=== PATIENT | female | born 1985 | race Caucasian/White ===

== ENCOUNTER 2017-08-12 13:58 | Emergency (ER) | payer OTHER ==
[2017-08-12 14:25] LABS: ADD MAN DIFF? NO
[2017-08-12 14:27] LABS: WHITE BLOOD COUNT 9.5 10^3/ul (4.8-10.8)
[2017-08-12 14:27] LABS: BASOPHILS % 0.4 % (0.0-2.0); EOSINOPHILS # 0.2 10^3/ul (0.0-0.5); EOSINOPHILS % 2.2 % (0.0-7.0); HEMATOCRIT 33.7 % (37.0-47.0); HEMOGLOBIN 10.9 g/dl (12.0-16.0); LYMPHOCYTES # 1.5 10^3/ul (0.8-2.9); LYMPHOCYTES % 15.2 % (15.0-51.0); MEAN CORPUSCULAR HEMOGLOBIN 27.5 pg (29.0-33.0); MEAN CORPUSCULAR HGB CONC 32.3 g/dl (32.0-37.0); MEAN CORPUSCULAR VOLUME 85.1 fl (82.0-101.0); MEAN PLATELET VOLUME 10.3 fl (7.4-10.4); MONOCYTE # 0.5 10^3/ul (0.3-0.9); MONOCYTES % 4.9 % (0.0-11.0); NEUTROPHIL # 7.3 10^3/ul (1.6-7.5); PLATELET COUNT 327 10^3/UL (140-415); RED BLOOD COUNT 3.96 10^6/ul (4.20-5.40); RED CELL DISTRIBUTION WIDTH 16.4 % (11.5-14.5)
[2017-08-12 14:49] LABS: ADD UMIC YES; UR ASCORBIC ACID NEGATIVE (NEGATIVE); UR BACTERIA FEW /HPF (NONE SEEN); UR BILIRUBIN (Dip) NEGATIVE (NEGATIVE); UR BLOOD (Dip) NEGATIVE (NEGATIVE); UR CLARITY CLOUDY (CLEAR); UR COLOR YELLOW (YELLOW); UR GLUCOSE (Dip) NEGATIVE (NEGATIVE); UR KETONES (Dip) NEGATIVE (NEGATIVE); UR LEUKOCYTE ESTERASE (Dip) 3+ Leu/ul (NEGATIVE); UR MUCUS MODERATE /HPF (NONE SEEN); UR NITRITE (Dip) NEGATIVE (NEGATIVE); UR RBC 8 /HPF (0-5); UR SPECIFIC GRAVITY (Dip) 1.026 (1.003-1.030); UR SQUAMOUS EPITHELIAL CELL MANY /HPF (FEW); UR TOTAL PROTEIN (Dip) NEGATIVE (NEGATIVE); UR UROBILINOGEN (Dip) 1+ mg/dL (NEGATIVE); UR WBC 22 /HPF (0-5)
[2017-08-12 14:56] LABS: ALANINE AMINOTRANSFERASE 31 IU/L (13-69); ALBUMIN 3.8 g/dl (3.3-4.9); ALBUMIN/GLOBULIN RATIO 1.22; ALKALINE PHOSPHATASE 89 IU/L (42-121); ANION GAP 16 (8-16); ASPARTATE AMINO TRANSFERASE 32 IU/L (15-46); BILIRUBIN,INDIRECT 0.2 mg/dl (0-1.1); BILIRUBIN,TOTAL 0.2 mg/dl (0.2-1.3); BLOOD UREA NITROGEN 15 mg/dl (7-20); CARBON DIOXIDE 24 mmol/L (21-31); CHLORIDE 109 mmol/L (97-110); CREATININE 0.71 mg/dl (0.44-1.00); GLUCOSE 121 mg/dl (70-220); POTASSIUM 3.1 mmol/L (3.5-5.1); SODIUM 146 mmol/L (135-144); TOTAL PROTEIN 6.9 g/dl (6.1-8.1)
[2017-08-12 15:20] LABS: ACETAMINOPHEN < 10.0 ug/ml (10.0-30.0); ETHANOL < 10.0 mg/dl; SALICYLATE < 1.0 mg/dl (5.0-30.0)
[2017-08-12 15:33] LABS: BARBITURATES Negative (NEGATIVE); BENZODIAZEPINES Negative (NEGATIVE); CANNABINOIDS Negative (NEGATIVE); COCAINE Negative (NEGATIVE); OPIATES Negative (NEGATIVE)
[2017-08-12 15:34] LABS: AMPHETAMINE/METHAMPHETAMINE Positive (NEGATIVE)
[2017-08-12] MEDS: POTASSIUM CHLORIDE (SR) 20 MEQ TAB PO (15:53)
[2017-08-12] MEDS: TRIMETHOPRIM/SULFAMETHOX (DS) TAB PO (15:53)
== END 2017-08-12 17:50 | disposition home or self-care (01) ==
LOC: E/R 13:58
DX: F15.10 Other stimulant abuse, uncomplicated (principal); N39.0 Urinary tract infection, site not specified; E87.6 Hypokalemia; D64.9 Anemia, unspecified; Z87.891 Personal history of nicotine dependence
CPT/HCPCS: 36415; 80053; 80306; 80307; 81001; 81025; 84703; 85025; 99283-25

== ENCOUNTER 2017-08-19 12:20 | Emergency (ER) | payer OTHER ==
[2017-08-19 14:34] LABS: ADD MAN DIFF? NO
[2017-08-19 14:36] LABS: BASOPHIL # 0.1 10^3/ul (0.0-0.1); BASOPHILS % 0.6 % (0.0-2.0); EOSINOPHILS # 0.1 10^3/ul (0.0-0.5); EOSINOPHILS % 0.7 % (0.0-7.0); HEMATOCRIT 38.3 % (37.0-47.0); HEMOGLOBIN 12.1 g/dl (12.0-16.0); LYMPHOCYTES # 1.1 10^3/ul (0.8-2.9); LYMPHOCYTES % 12.5 % (15.0-51.0); MEAN CORPUSCULAR HEMOGLOBIN 26.9 pg (29.0-33.0); MEAN CORPUSCULAR HGB CONC 31.6 g/dl (32.0-37.0); MEAN CORPUSCULAR VOLUME 85.1 fl (82.0-101.0); MONOCYTE # 0.5 10^3/ul (0.3-0.9); MONOCYTES % 5.9 % (0.0-11.0); NEUTROPHIL # 7.1 10^3/ul (1.6-7.5); PLATELET COUNT 310 10^3/UL (140-415); RED CELL DISTRIBUTION WIDTH 16.2 % (11.5-14.5)
[2017-08-19 14:36] LABS: WHITE BLOOD COUNT 8.9 10^3/ul (4.8-10.8)
[2017-08-19 14:47] LABS: ADD UMIC YES; UR ASCORBIC ACID NEGATIVE (NEGATIVE); UR BACTERIA FEW /HPF (NONE SEEN); UR BILIRUBIN (Dip) NEGATIVE (NEGATIVE); UR BLOOD (Dip) NEGATIVE (NEGATIVE); UR CLARITY CLOUDY (CLEAR); UR COLOR YELLOW (YELLOW); UR GLUCOSE (Dip) NEGATIVE (NEGATIVE); UR KETONES (Dip) NEGATIVE (NEGATIVE); UR LEUKOCYTE ESTERASE (Dip) 3+ Leu/ul (NEGATIVE); UR MUCUS FEW /HPF (NONE SEEN); UR NITRITE (Dip) NEGATIVE (NEGATIVE); UR NONSQUAMOUS EPITHELIAL CELL 1 /HPF (NONE SEEN); UR RBC 4 /HPF (0-5); UR SPECIFIC GRAVITY (Dip) 1.026 (1.003-1.030); UR SQUAMOUS EPITHELIAL CELL MANY /HPF (FEW); UR TOTAL PROTEIN (Dip) NEGATIVE (NEGATIVE); UR UROBILINOGEN (Dip) NEGATIVE (NEGATIVE); UR WBC 16 /HPF (0-5)
[2017-08-19 14:57] LABS: ALANINE AMINOTRANSFERASE 23 IU/L (13-69); ALBUMIN 3.7 g/dl (3.3-4.9); ALBUMIN/GLOBULIN RATIO 1.19; ALKALINE PHOSPHATASE 71 IU/L (42-121); ANION GAP 15 (8-16); ASPARTATE AMINO TRANSFERASE 18 IU/L (15-46); BILIRUBIN,INDIRECT 0.2 mg/dl (0-1.1); BILIRUBIN,TOTAL 0.2 mg/dl (0.2-1.3); BLOOD UREA NITROGEN 21 mg/dl (7-20); CALCIUM 8.6 mg/dl (8.4-10.2); CARBON DIOXIDE 26 mmol/L (21-31); CHLORIDE 102 mmol/L (97-110); CREATININE 0.72 mg/dl (0.44-1.00); GLUCOSE 169 mg/dl (70-220); SODIUM 139 mmol/L (135-144); TOTAL PROTEIN 6.8 g/dl (6.1-8.1)
[2017-08-19 15:12] LABS: ACETAMINOPHEN < 10.0 ug/ml (10.0-30.0); ETHANOL < 10.0 mg/dl; SALICYLATE < 1.0 mg/dl (5.0-30.0)
[2017-08-19 15:15] LABS: BENZODIAZEPINES Negative (NEGATIVE)
[2017-08-19 15:22] LABS: AMPHETAMINE/METHAMPHETAMINE Positive (NEGATIVE); BARBITURATES Negative (NEGATIVE); CANNABINOIDS Negative (NEGATIVE); COCAINE Negative (NEGATIVE); OPIATES Negative (NEGATIVE)
[2017-08-19] MEDS: NITROFURANTOIN (SR) 100 MG CAP PO (16:43)
== END 2017-08-19 17:15 | disposition home or self-care (01) ==
LOC: E/R 12:20
DX: F32.9 Major depressive disorder, single episode, unspecified (principal); N30.90 Cystitis, unspecified without hematuria
CPT/HCPCS: 36415; 80053; 80306; 80307; 81001; 85025; 99285-25

== ENCOUNTER 2017-09-09 20:41 | Emergency (ER) | payer OTHER ==
[2017-09-09 22:43] LABS: ADD MAN DIFF? NO
[2017-09-09 22:45] LABS: WHITE BLOOD COUNT 10.2 10^3/ul (4.8-10.8)
[2017-09-09 22:45] LABS: ABNORMAL IP MESSAGE 1; BASOPHIL # 0.1 10^3/ul (0.0-0.1); BASOPHILS % 0.8 % (0.0-2.0); EOSINOPHILS % 0.2 % (0.0-7.0); HEMATOCRIT 36.9 % (37.0-47.0); HEMOGLOBIN 11.7 g/dl (12.0-16.0); LYMPHOCYTES # 1.5 10^3/ul (0.8-2.9); MEAN CORPUSCULAR HEMOGLOBIN 26.8 pg (29.0-33.0); MEAN CORPUSCULAR HGB CONC 31.7 g/dl (32.0-37.0); MEAN CORPUSCULAR VOLUME 84.6 fl (82.0-101.0); MEAN PLATELET VOLUME 9.9 fl (7.4-10.4); MONOCYTE # 0.9 10^3/ul (0.3-0.9); MONOCYTES % 8.3 % (0.0-11.0); NEUTROPHIL # 7.1 10^3/ul (1.6-7.5); NEUTROPHILS % 69.4 % (39.0-77.0); PLATELET COUNT 460 10^3/UL (140-415); RED BLOOD COUNT 4.36 10^6/ul (4.20-5.40); RED CELL DISTRIBUTION WIDTH 16.4 % (11.5-14.5)
[2017-09-09 22:48] LABS: POSITIVE DIFF @See below
[2017-09-09 23:25] LABS: BARBITURATES Negative (NEGATIVE); BENZODIAZEPINES Negative (NEGATIVE); CANNABINOIDS Negative (NEGATIVE); COCAINE Negative (NEGATIVE); OPIATES Negative (NEGATIVE)
[2017-09-09 23:39] LABS: AMPHETAMINE/METHAMPHETAMINE POSITIVE (NEGATIVE)
[2017-09-09 23:40] LABS: ALANINE AMINOTRANSFERASE 31 IU/L (13-69); ALBUMIN 3.9 g/dl (3.3-4.9); ALBUMIN/GLOBULIN RATIO 1.08; ALKALINE PHOSPHATASE 107 IU/L (42-121); ANION GAP 15 (8-16); ASPARTATE AMINO TRANSFERASE 24 IU/L (15-46); BLOOD UREA NITROGEN 19 mg/dl (7-20); CALCIUM 9.4 mg/dl (8.4-10.2); CARBON DIOXIDE 32 mmol/L (21-31); CHLORIDE 102 mmol/L (97-110); CREATININE 0.81 mg/dl (0.44-1.00); GLUCOSE 123 mg/dl (70-220); SODIUM 145 mmol/L (135-144); TOTAL PROTEIN 7.5 g/dl (6.1-8.1)
[2017-09-10 00:31] LABS: ACETAMINOPHEN < 10.0 ug/ml (10.0-30.0)
[2017-09-10 00:32] LABS: ETHANOL < 10.0 mg/dl; SALICYLATE < 1.0 mg/dl (5.0-30.0)
[2017-09-10] MEDS: OLANZAPINE 5 MG TAB PO (10:35)
== END 2017-09-10 16:35 ==
LOC: E/R 20:41
DX: R45.851 Suicidal ideations (principal)
CPT/HCPCS: 36415; 80053; 80307; 81025; 85025; 99285-25

== ENCOUNTER 2017-09-30 15:22 | Emergency (ER) | payer OTHER | END 2017-09-30 17:38 | disposition left against medical advice (07) | LOC: E/R 17:38 | DX: F32.9 Major depressive disorder, single episode, unspecified (principal); F15.14 Other stimulant abuse with stimulant-induced mood disorder | CPT/HCPCS: 99282; Z7502 ==

== ENCOUNTER 2017-10-23 14:49 | Emergency (ER) | payer OTHER ==
[2017-10-23 15:50] LABS: ADD MAN DIFF? NO
[2017-10-23 15:53] LABS: BASOPHIL # 0.1 10^3/ul (0.0-0.1); BASOPHILS % 0.5 % (0.0-2.0); EOSINOPHILS % 0.2 % (0.0-7.0); HEMATOCRIT 46.1 % (37.0-47.0); HEMOGLOBIN 14.1 g/dl (12.0-16.0); LYMPHOCYTES # 1.4 10^3/ul (0.8-2.9); LYMPHOCYTES % 11.1 % (15.0-51.0); MEAN CORPUSCULAR HEMOGLOBIN 26.1 pg (29.0-33.0); MEAN CORPUSCULAR HGB CONC 30.6 g/dl (32.0-37.0); MEAN CORPUSCULAR VOLUME 85.4 fl (82.0-101.0); MEAN PLATELET VOLUME 10.3 fl (7.4-10.4); MONOCYTE # 0.5 10^3/ul (0.3-0.9); MONOCYTES % 4.3 % (0.0-11.0); NEUTROPHIL # 10.5 10^3/ul (1.6-7.5); NEUTROPHILS % 83.3 % (39.0-77.0); PLATELET COUNT 426 10^3/UL (140-415)
[2017-10-23 15:53] LABS: WHITE BLOOD COUNT 12.6 10^3/ul (4.8-10.8)
[2017-10-23 16:04] LABS: ADD UMIC YES; UR ASCORBIC ACID NEGATIVE (NEGATIVE); UR BILIRUBIN (Dip) NEGATIVE (NEGATIVE); UR BLOOD (Dip) NEGATIVE (NEGATIVE); UR CLARITY CLOUDY (CLEAR); UR COLOR YELLOW (YELLOW); UR GLUCOSE (Dip) NEGATIVE (NEGATIVE); UR KETONES (Dip) NEGATIVE (NEGATIVE); UR LEUKOCYTE ESTERASE (Dip) 3+ Leu/ul (NEGATIVE); UR MUCUS MODERATE /HPF (NONE SEEN); UR NITRITE (Dip) NEGATIVE (NEGATIVE); UR RBC 8 /HPF (0-5); UR SPECIFIC GRAVITY (Dip) 1.027 (1.003-1.030); UR SQUAMOUS EPITHELIAL CELL MODERATE /HPF (FEW); UR TOTAL PROTEIN (Dip) NEGATIVE (NEGATIVE); UR UROBILINOGEN (Dip) NEGATIVE (NEGATIVE); UR WBC 13 /HPF (0-5)
[2017-10-23 16:12] LABS: INR 0.95; PROTIME 12.8 Sec (11.9-14.9)
[2017-10-23 16:13] LABS: BARBITURATES Negative (NEGATIVE); BENZODIAZEPINES Negative (NEGATIVE); CANNABINOIDS Negative (NEGATIVE); COCAINE Negative (NEGATIVE); OPIATES Negative (NEGATIVE); PARTIAL THROMBOPLASTIN TIME 25.4 Sec (25.0-35.0)
[2017-10-23 16:17] LABS: ALANINE AMINOTRANSFERASE 25 IU/L (13-69); ALBUMIN 4.4 g/dl (3.3-4.9); ALBUMIN/GLOBULIN RATIO 1.12; ALKALINE PHOSPHATASE 94 IU/L (42-121); ANION GAP 18 (8-16); ASPARTATE AMINO TRANSFERASE 23 IU/L (15-46); BILIRUBIN,INDIRECT 0.2 mg/dl (0-1.1); BILIRUBIN,TOTAL 0.2 mg/dl (0.2-1.3); BLOOD UREA NITROGEN 27 mg/dl (7-20); CALCIUM 9.7 mg/dl (8.4-10.2); CARBON DIOXIDE 27 mmol/L (21-31); CHLORIDE 106 mmol/L (97-110); CREATININE 0.77 mg/dl (0.44-1.00); GLUCOSE 122 mg/dl (70-220); SODIUM 146 mmol/L (135-144); TOTAL PROTEIN 8.3 g/dl (6.1-8.1)
[2017-10-23 16:20] LABS: ACETAMINOPHEN < 10.0 ug/ml (10.0-30.0); ETHANOL < 10.0 mg/dl; SALICYLATE < 1.0 mg/dl (5.0-30.0)
[2017-10-23 16:24] LABS: AMPHETAMINE/METHAMPHETAMINE POSITIVE (NEGATIVE)
[2017-10-23] MEDS: CIPROFLOXACIN 500 MG TAB PO (18:21)
[2017-10-23] MEDS: OLANZAPINE 5 MG TAB PO (22:15)
== END 2017-10-24 08:15 ==
LOC: E/R 10-24 08:15
DX: T14.91XA Suicide attempt, initial encounter (principal); F15.10 Other stimulant abuse, uncomplicated; N30.00 Acute cystitis without hematuria; R40.2142 Coma scale, eyes open, spontaneous, at arrival to emergency department; R40.2252 Coma scale, best verbal response, oriented, at arrival to emergency department; R40.2362 Coma scale, best motor response, obeys commands, at arrival to emergency department; X58.XXXA Exposure to other specified factors, initial encounter; Y92.9 Unspecified place or not applicable
CPT/HCPCS: 80053; 80307; 81001; 81025; 85025; 85610; 85730; 87086; 99285

== ENCOUNTER 2017-11-02 20:33 | Emergency (ER) | payer OTHER ==
[2017-11-02 23:27] LABS: ADD MAN DIFF? NO
[2017-11-02 23:29] LABS: WHITE BLOOD COUNT 10.4 10^3/ul (4.8-10.8)
[2017-11-02 23:29] LABS: BASOPHILS % 0.4 % (0.0-2.0); EOSINOPHILS # 0.5 10^3/ul (0.0-0.5); EOSINOPHILS % 4.4 % (0.0-7.0); HEMATOCRIT 31.5 % (37.0-47.0); HEMOGLOBIN 9.9 g/dl (12.0-16.0); LYMPHOCYTES # 2.8 10^3/ul (0.8-2.9); LYMPHOCYTES % 26.8 % (15.0-51.0); MEAN CORPUSCULAR HEMOGLOBIN 26.3 pg (29.0-33.0); MEAN CORPUSCULAR HGB CONC 31.4 g/dl (32.0-37.0); MEAN CORPUSCULAR VOLUME 83.6 fl (82.0-101.0); MEAN PLATELET VOLUME 10.7 fl (7.4-10.4); NEUTROPHILS % 58.1 % (39.0-77.0); PLATELET COUNT 321 10^3/UL (140-415); RED BLOOD COUNT 3.77 10^6/ul (4.20-5.40); RED CELL DISTRIBUTION WIDTH 16.9 % (11.5-14.5)
[2017-11-02 23:51] LABS: ALANINE AMINOTRANSFERASE 44 IU/L (13-69); ALBUMIN 3.4 g/dl (3.3-4.9); ALBUMIN/GLOBULIN RATIO 1.21; ALKALINE PHOSPHATASE 84 IU/L (42-121); ANION GAP 10 (8-16); ASPARTATE AMINO TRANSFERASE 50 IU/L (15-46); BILIRUBIN,INDIRECT 0.2 mg/dl (0-1.1); BILIRUBIN,TOTAL 0.2 mg/dl (0.2-1.3); BLOOD UREA NITROGEN 15 mg/dl (7-20); CALCIUM 8.8 mg/dl (8.4-10.2); CARBON DIOXIDE 24 mmol/L (21-31); CHLORIDE 111 mmol/L (97-110); CREATININE 0.62 mg/dl (0.44-1.00); GLUCOSE 106 mg/dl (70-220); POTASSIUM 3.5 mmol/L (3.5-5.1); SODIUM 141 mmol/L (135-144); TOTAL PROTEIN 6.2 g/dl (6.1-8.1)
[2017-11-03] MEDS: LORAZEPAM 0.5 MG TAB PO (00:06)
[2017-11-03 00:17] LABS: ACETAMINOPHEN < 10.0 ug/ml (10.0-30.0); ETHANOL < 10.0 mg/dl; SALICYLATE < 1.0 mg/dl (5.0-30.0)
[2017-11-03 00:31] LABS: BARBITURATES Negative (NEGATIVE); BENZODIAZEPINES Negative (NEGATIVE); CANNABINOIDS Negative (NEGATIVE); COCAINE Negative (NEGATIVE); OPIATES Negative (NEGATIVE)
[2017-11-03 00:34] LABS: ADD UMIC YES; UR ASCORBIC ACID NEGATIVE (NEGATIVE); UR BILIRUBIN (Dip) NEGATIVE (NEGATIVE); UR BLOOD (Dip) 3+ mg/dL (NEGATIVE); UR CLARITY SLIGHTLY CLOUDY (CLEAR); UR COLOR YELLOW (YELLOW); UR GLUCOSE (Dip) NEGATIVE (NEGATIVE); UR KETONES (Dip) NEGATIVE (NEGATIVE); UR LEUKOCYTE ESTERASE (Dip) 3+ Leu/ul (NEGATIVE); UR MUCUS MANY /HPF (NONE SEEN); UR NITRITE (Dip) NEGATIVE (NEGATIVE); UR RBC 12 /HPF (0-5); UR SPECIFIC GRAVITY (Dip) 1.033 (1.003-1.030); UR SQUAMOUS EPITHELIAL CELL MODERATE /HPF (FEW); UR TOTAL PROTEIN (Dip) 1+ mg/dl (NEGATIVE); UR UROBILINOGEN (Dip) 1+ mg/dL (NEGATIVE); UR WBC 18 /HPF (0-5)
[2017-11-03 00:59] LABS: AMPHETAMINE/METHAMPHETAMINE POSITIVE (NEGATIVE)
[2017-11-03] MEDS: CEPHALEXIN 500 MG CAP PO (09:30)
== END 2017-11-03 18:19 ==
LOC: E/R 20:33
DX: R45.851 Suicidal ideations (principal); F15.10 Other stimulant abuse, uncomplicated; N30.01 Acute cystitis with hematuria; D64.9 Anemia, unspecified; R40.2142 Coma scale, eyes open, spontaneous, at arrival to emergency department; R40.2252 Coma scale, best verbal response, oriented, at arrival to emergency department; R40.2362 Coma scale, best motor response, obeys commands, at arrival to emergency department
CPT/HCPCS: 36415; 80053; 80307; 81001; 84703; 85025; 99285

== ENCOUNTER 2017-11-07 00:19 | Emergency (ER) | payer OTHER ==
[2017-11-07 00:59] LABS: ADD MAN DIFF? NO
[2017-11-07 01:04] LABS: BASOPHILS % 0.4 % (0.0-2.0); EOSINOPHILS # 0.1 10^3/ul (0.0-0.5); EOSINOPHILS % 0.9 % (0.0-7.0); HEMATOCRIT 38.5 % (37.0-47.0); LYMPHOCYTES # 2.2 10^3/ul (0.8-2.9); MEAN CORPUSCULAR HEMOGLOBIN 26.3 pg (29.0-33.0); MEAN CORPUSCULAR HGB CONC 31.2 g/dl (32.0-37.0); MEAN CORPUSCULAR VOLUME 84.4 fl (82.0-101.0); MEAN PLATELET VOLUME 10.5 fl (7.4-10.4); MONOCYTE # 0.8 10^3/ul (0.3-0.9); MONOCYTES % 6.8 % (0.0-11.0); NEUTROPHILS % 71.4 % (39.0-77.0); PLATELET COUNT 415 10^3/UL (140-415); RED BLOOD COUNT 4.56 10^6/ul (4.20-5.40); RED CELL DISTRIBUTION WIDTH 17.4 % (11.5-14.5)
[2017-11-07 01:04] LABS: WHITE BLOOD COUNT 11.2 10^3/ul (4.8-10.8)
[2017-11-07 01:35] LABS: ADD UMIC YES; UR AMORPHOUS CRYSTAL FEW /HPF (NONE SEEN); UR ASCORBIC ACID 40 mg/dL (NEGATIVE); UR BACTERIA FEW /HPF (NONE SEEN); UR BILIRUBIN (Dip) NEGATIVE (NEGATIVE); UR BLOOD (Dip) NEGATIVE (NEGATIVE); UR CLARITY CLOUDY (CLEAR); UR COLOR YELLOW (YELLOW); UR GLUCOSE (Dip) NEGATIVE (NEGATIVE); UR KETONES (Dip) TRACE mg/dL (NEGATIVE); UR LEUKOCYTE ESTERASE (Dip) 3+ Leu/ul (NEGATIVE); UR MUCUS MODERATE /HPF (NONE SEEN); UR NITRITE (Dip) NEGATIVE (NEGATIVE); UR RBC 36 /HPF (0-5); UR SPECIFIC GRAVITY (Dip) 1.026 (1.003-1.030); UR SQUAMOUS EPITHELIAL CELL FEW /HPF (FEW); UR TOTAL PROTEIN (Dip) 1+ mg/dl (NEGATIVE); UR UROBILINOGEN (Dip) NEGATIVE (NEGATIVE); UR WBC 67 /HPF (0-5)
[2017-11-07 01:48] LABS: ALANINE AMINOTRANSFERASE 37 IU/L (13-69); ALBUMIN 4.4 g/dl (3.3-4.9); ALBUMIN/GLOBULIN RATIO 1.29; ALKALINE PHOSPHATASE 81 IU/L (42-121); ANION GAP 18 (8-16); ASPARTATE AMINO TRANSFERASE 32 IU/L (15-46); BILIRUBIN,INDIRECT 0.2 mg/dl (0-1.1); BILIRUBIN,TOTAL 0.2 mg/dl (0.2-1.3); BLOOD UREA NITROGEN 17 mg/dl (7-20); CALCIUM 9.7 mg/dl (8.4-10.2); CARBON DIOXIDE 22 mmol/L (21-31); CHLORIDE 108 mmol/L (97-110); CREATININE 0.83 mg/dl (0.44-1.00); GLUCOSE 108 mg/dl (70-220); SODIUM 144 mmol/L (135-144); TOTAL PROTEIN 7.8 g/dl (6.1-8.1)
[2017-11-07 01:55] LABS: BARBITURATES Negative (NEGATIVE); BENZODIAZEPINES Negative (NEGATIVE); CANNABINOIDS Negative (NEGATIVE); COCAINE Negative (NEGATIVE); OPIATES Negative (NEGATIVE)
[2017-11-07 01:57] LABS: ACETAMINOPHEN < 10.0 ug/ml (10.0-30.0); ETHANOL < 10.0 mg/dl; SALICYLATE < 1.0 mg/dl (5.0-30.0)
[2017-11-07 02:08] LABS: AMPHETAMINE/METHAMPHETAMINE POSITIVE (NEGATIVE)
[2017-11-07] MEDS: CEFTRIAXONE 1 GM/50 ML (PMX) 50 ML IVPB (03:08)
[2017-11-07] MEDS: SOD CHLORIDE 0.9% 1,000 ML IV (03:08)
== END 2017-11-07 10:53 | disposition home or self-care (01) ==
LOC: E/R 00:19
DX: N30.90 Cystitis, unspecified without hematuria (principal)
CPT/HCPCS: 36415; 80053; 80307; 81001; 81025; 84703; 85025; 96374; 99284-25

== ENCOUNTER 2017-11-15 18:38 | Emergency (ER) | payer OTHER ==
[2017-11-15 20:34] LABS: ADD UMIC YES; UR ASCORBIC ACID 20 mg/dL (NEGATIVE); UR BILIRUBIN (Dip) NEGATIVE (NEGATIVE); UR BLOOD (Dip) NEGATIVE (NEGATIVE); UR CLARITY CLOUDY (CLEAR); UR COLOR YELLOW (YELLOW); UR GLUCOSE (Dip) NEGATIVE (NEGATIVE); UR KETONES (Dip) TRACE mg/dL (NEGATIVE); UR LEUKOCYTE ESTERASE (Dip) 3+ Leu/ul (NEGATIVE); UR MUCUS MANY /HPF (NONE SEEN); UR NITRITE (Dip) NEGATIVE (NEGATIVE); UR RBC 59 /HPF (0-5); UR SPECIFIC GRAVITY (Dip) 1.033 (1.003-1.030); UR SQUAMOUS EPITHELIAL CELL MODERATE /HPF (FEW); UR TOTAL PROTEIN (Dip) 1+ mg/dl (NEGATIVE); UR UROBILINOGEN (Dip) 2+ mg/dL (NEGATIVE); UR WBC 63 /HPF (0-5)
[2017-11-15 20:37] LABS: ADD MAN DIFF? NO
[2017-11-15 20:38] LABS: BASOPHIL # 0.1 10^3/ul (0.0-0.1); BASOPHILS % 0.8 % (0.0-2.0); EOSINOPHILS # 0.2 10^3/ul (0.0-0.5); EOSINOPHILS % 2.6 % (0.0-7.0); HEMATOCRIT 35.7 % (37.0-47.0); HEMOGLOBIN 11.4 g/dl (12.0-16.0); LYMPHOCYTES # 2.3 10^3/ul (0.8-2.9); LYMPHOCYTES % 24.8 % (15.0-51.0); MEAN CORPUSCULAR HEMOGLOBIN 26.9 pg (29.0-33.0); MEAN CORPUSCULAR HGB CONC 31.9 g/dl (32.0-37.0); MEAN CORPUSCULAR VOLUME 84.2 fl (82.0-101.0); MEAN PLATELET VOLUME 10.3 fl (7.4-10.4); MONOCYTE # 0.5 10^3/ul (0.3-0.9); NEUTROPHIL # 5.9 10^3/ul (1.6-7.5); NEUTROPHILS % 65.5 % (39.0-77.0); PLATELET COUNT 355 10^3/UL (140-415); RED BLOOD COUNT 4.24 10^6/ul (4.20-5.40)
[2017-11-15 20:38] LABS: WHITE BLOOD COUNT 9.1 10^3/ul (4.8-10.8)
[2017-11-15 20:58] LABS: ALANINE AMINOTRANSFERASE 29 IU/L (13-69); ALBUMIN 3.9 g/dl (3.3-4.9); ALBUMIN/GLOBULIN RATIO 1.25; ALKALINE PHOSPHATASE 80 IU/L (42-121); ANION GAP 12 (8-16); ASPARTATE AMINO TRANSFERASE 27 IU/L (15-46); BILIRUBIN,INDIRECT 0.2 mg/dl (0-1.1); BILIRUBIN,TOTAL 0.2 mg/dl (0.2-1.3); BLOOD UREA NITROGEN 20 mg/dl (7-20); CALCIUM 8.6 mg/dl (8.4-10.2); CARBON DIOXIDE 24 mmol/L (21-31); CHLORIDE 105 mmol/L (97-110); CREATININE 0.76 mg/dl (0.44-1.00); GLUCOSE 115 mg/dl (70-220); POTASSIUM 3.3 mmol/L (3.5-5.1); SODIUM 138 mmol/L (135-144)
[2017-11-15 21:06] LABS: ACETAMINOPHEN < 10.0 ug/ml (10.0-30.0); ETHANOL < 10.0 mg/dl; SALICYLATE < 1.0 mg/dl (5.0-30.0)
[2017-11-15 21:13] LABS: BARBITURATES Negative (NEGATIVE); BENZODIAZEPINES Negative (NEGATIVE); CANNABINOIDS Negative (NEGATIVE); COCAINE Negative (NEGATIVE); OPIATES Negative (NEGATIVE)
[2017-11-15 21:24] LABS: AMPHETAMINE/METHAMPHETAMINE POSITIVE (NEGATIVE)
== END 2017-11-15 21:38 | disposition home or self-care (01) ==
LOC: E/R 18:38
DX: F15.10 Other stimulant abuse, uncomplicated (principal); N30.90 Cystitis, unspecified without hematuria
CPT/HCPCS: 36415; 80053; 80307; 81001; 81025; 85025; 99283

== ENCOUNTER 2017-11-18 11:35 | Emergency (ER) | payer OTHER ==
[2017-11-18 12:22] LABS: ADD MAN DIFF? NO
[2017-11-18 12:25] LABS: BASOPHIL # 0.1 10^3/ul (0.0-0.1); BASOPHILS % 0.6 % (0.0-2.0); EOSINOPHILS # 0.1 10^3/ul (0.0-0.5); HEMATOCRIT 38.8 % (37.0-47.0); LYMPHOCYTES % 18.4 % (15.0-51.0); MEAN CORPUSCULAR HEMOGLOBIN 26.4 pg (29.0-33.0); MEAN CORPUSCULAR HGB CONC 30.9 g/dl (32.0-37.0); MEAN CORPUSCULAR VOLUME 85.5 fl (82.0-101.0); MEAN PLATELET VOLUME 9.9 fl (7.4-10.4); MONOCYTE # 0.7 10^3/ul (0.3-0.9); MONOCYTES % 6.6 % (0.0-11.0); NEUTROPHIL # 7.9 10^3/ul (1.6-7.5); PLATELET COUNT 369 10^3/UL (140-415); RED BLOOD COUNT 4.54 10^6/ul (4.20-5.40)
[2017-11-18 12:25] LABS: WHITE BLOOD COUNT 10.9 10^3/ul (4.8-10.8)
[2017-11-18 12:46] LABS: ALANINE AMINOTRANSFERASE 20 IU/L (13-69); ALBUMIN 4.3 g/dl (3.3-4.9); ALBUMIN/GLOBULIN RATIO 1.22; ALKALINE PHOSPHATASE 78 IU/L (42-121); ANION GAP 12 (8-16); ASPARTATE AMINO TRANSFERASE 20 IU/L (15-46); BILIRUBIN,INDIRECT 0.2 mg/dl (0-1.1); BILIRUBIN,TOTAL 0.2 mg/dl (0.2-1.3); BLOOD UREA NITROGEN 16 mg/dl (7-20); CALCIUM 9.5 mg/dl (8.4-10.2); CARBON DIOXIDE 29 mmol/L (21-31); CHLORIDE 102 mmol/L (97-110); CREATININE 0.68 mg/dl (0.44-1.00); GLUCOSE 93 mg/dl (70-220); POTASSIUM 4.6 mmol/L (3.5-5.1); SODIUM 138 mmol/L (135-144); TOTAL PROTEIN 7.8 g/dl (6.1-8.1)
[2017-11-18 12:47] LABS: ACETAMINOPHEN < 10.0 ug/ml (10.0-30.0); ETHANOL < 10.0 mg/dl; SALICYLATE < 1.0 mg/dl (5.0-30.0)
[2017-11-18 12:51] LABS: BARBITURATES Negative (NEGATIVE); BENZODIAZEPINES Negative (NEGATIVE); CANNABINOIDS Negative (NEGATIVE); COCAINE Negative (NEGATIVE); OPIATES Negative (NEGATIVE)
[2017-11-18 12:53] LABS: AMPHETAMINE/METHAMPHETAMINE POSITIVE (NEGATIVE)
[2017-11-18] MEDS: OLANZAPINE 5 MG TAB PO (20:58)
[2017-11-18] MEDS: BUPROPION 100 MG TAB PO (20:59)
[2017-11-19] MEDS: OLANZAPINE 5 MG TAB PO (09:14)
== END 2017-11-19 11:36 ==
LOC: E/R 11-19 11:36
DX: F15.10 Other stimulant abuse, uncomplicated (principal); F20.1 Disorganized schizophrenia; F78 Other intellectual disabilities
CPT/HCPCS: 36415; 80053; 80307; 81025; 85025; 99285

== ENCOUNTER 2017-12-03 01:28 | Emergency (ER) | payer OTHER ==
[2017-12-03 02:26] LABS: ADD MAN DIFF? NO
[2017-12-03 02:44] LABS: BASOPHILS % 0.3 % (0.0-2.0); EOSINOPHILS # 0.2 10^3/ul (0.0-0.5); EOSINOPHILS % 3.7 % (0.0-7.0); HEMATOCRIT 37.3 % (37.0-47.0); HEMOGLOBIN 11.9 g/dl (12.0-16.0); IMMATURE GRANS #M 0.02 10^3/ul; IMMATURE GRANS % (M) 0.3 %; LYMPHOCYTES # 1.6 10^3/ul (0.8-2.9); LYMPHOCYTES % 26.6 % (15.0-51.0); MEAN CORPUSCULAR HEMOGLOBIN 26.4 pg (29.0-33.0); MEAN CORPUSCULAR HGB CONC 31.9 g/dl (32.0-37.0); MEAN CORPUSCULAR VOLUME 82.7 fl (82.0-101.0); MEAN PLATELET VOLUME 10.3 fl (7.4-10.4); MONOCYTE # 0.5 10^3/ul (0.3-0.9); MONOCYTES % 8.3 % (0.0-11.0); NEUTROPHIL # 3.7 10^3/ul (1.6-7.5); NEUTROPHILS % 60.8 % (39.0-77.0); PLATELET COUNT 364 10^3/UL (140-415); RED BLOOD COUNT 4.51 10^6/ul (4.20-5.40)
[2017-12-03 02:44] LABS: WHITE BLOOD COUNT 6.2 10^3/ul (4.8-10.8)
[2017-12-03 02:58] LABS: ALANINE AMINOTRANSFERASE 63 IU/L (13-69); ALBUMIN/GLOBULIN RATIO 1.17; ALKALINE PHOSPHATASE 83 IU/L (42-121); ANION GAP 14 (8-16); ASPARTATE AMINO TRANSFERASE 68 IU/L (15-46); BILIRUBIN,INDIRECT 0.1 mg/dl (0-1.1); BILIRUBIN,TOTAL 0.1 mg/dl (0.2-1.3); BLOOD UREA NITROGEN 17 mg/dl (7-20); CALCIUM 8.7 mg/dl (8.4-10.2); CARBON DIOXIDE 24 mmol/L (21-31); CHLORIDE 106 mmol/L (97-110); CREATININE 0.84 mg/dl (0.44-1.00); GLUCOSE 101 mg/dl (70-220); POTASSIUM 3.1 mmol/L (3.5-5.1); SODIUM 141 mmol/L (135-144); TOTAL PROTEIN 7.4 g/dl (6.1-8.1)
[2017-12-03 03:01] LABS: ACETAMINOPHEN < 10.0 ug/ml (10.0-30.0); SALICYLATE < 1.0 mg/dl (5.0-30.0)
[2017-12-03 03:07] LABS: ADD UMIC YES; UR ASCORBIC ACID NEGATIVE (NEGATIVE); UR BILIRUBIN (Dip) NEGATIVE (NEGATIVE); UR BLOOD (Dip) 3+ mg/dL (NEGATIVE); UR BUDDING YEAST FEW /HPF (NONE SEEN); UR CLARITY CLOUDY (CLEAR); UR COLOR AMBER (YELLOW); UR GLUCOSE (Dip) NEGATIVE (NEGATIVE); UR KETONES (Dip) NEGATIVE (NEGATIVE); UR LEUKOCYTE ESTERASE (Dip) 3+ Leu/ul (NEGATIVE); UR MUCUS MANY /HPF (NONE SEEN); UR NITRITE (Dip) NEGATIVE (NEGATIVE); UR RBC > 182 /HPF (0-5); UR SPECIFIC GRAVITY (Dip) 1.031 (1.003-1.030); UR SQUAMOUS EPITHELIAL CELL MANY /HPF (FEW); UR TOTAL PROTEIN (Dip) 2+ mg/dl (NEGATIVE); UR UROBILINOGEN (Dip) 1+ mg/dL (NEGATIVE); UR WBC 57 /HPF (0-5)
[2017-12-03] MEDS: OLANZAPINE 5 MG TAB PO (03:08)
[2017-12-03 03:15] LABS: AMPHETAMINE/METHAMPHETAMINE POSITIVE (NEGATIVE); BARBITURATES NEGATIVE (NEGATIVE); BENZODIAZEPINES NEGATIVE (NEGATIVE); CANNABINOIDS NEGATIVE (NEGATIVE); COCAINE NEGATIVE (NEGATIVE); OPIATES NEGATIVE (NEGATIVE)
[2017-12-03 03:25] LABS: ETHANOL < 10.0 mg/dl
== END 2017-12-03 08:54 | disposition home or self-care (01) ==
LOC: E/R 01:28
DX: F15.90 Other stimulant use, unspecified, uncomplicated (principal)
CPT/HCPCS: 36415; 80053; 80307; 81001; 81025; 85025; 99283

== ENCOUNTER 2017-12-25 15:45 | Emergency (ER) | payer SELFPAY, OTHER | END 2017-12-25 18:36 | disposition left against medical advice (07) | LOC: E/R 15:45 | DX: Z53.21 Procedure and treatment not carried out due to patient leaving prior to being seen by health care provider (principal) ==

== ENCOUNTER 2018-01-05 05:49 | Emergency (ER) | payer OTHER | END 2018-01-05 08:46 | disposition left against medical advice (07) | LOC: E/R 08:46 | DX: Z59.0 Homelessness (principal); T73.0XXA Starvation, initial encounter; F15.10 Other stimulant abuse, uncomplicated; Z86.59 Personal history of other mental and behavioral disorders | CPT/HCPCS: 99282; Z7502 ==

== ENCOUNTER 2018-01-24 22:46 | Emergency (ER) | payer OTHER ==
[2018-01-24] MEDS: OLANZAPINE 5 MG TAB PO (23:56)
== END 2018-01-25 00:17 | disposition home or self-care (01) ==
LOC: E/R 01-25 00:17
DX: Z76.0 Encounter for issue of repeat prescription (principal)
CPT/HCPCS: 99283; Z7502

== ENCOUNTER 2018-01-28 19:54 | Emergency (ER) | payer OTHER | END 2018-01-28 21:27 | disposition home or self-care (01) | LOC: E/R 19:54 | DX: Z76.0 Encounter for issue of repeat prescription (principal) | CPT/HCPCS: 99281; Z7502 ==

== ENCOUNTER 2018-01-29 14:54 | Emergency (ER) | payer SELFPAY, OTHER | END 2018-01-29 16:08 | disposition left against medical advice (07) | LOC: E/R 16:08 | DX: Z53.21 Procedure and treatment not carried out due to patient leaving prior to being seen by health care provider (principal) ==

== ENCOUNTER 2018-02-10 13:26 | Emergency (ER) | payer OTHER ==
[2018-02-10 14:59] LABS: ADD MAN DIFF? NO
[2018-02-10 15:00] LABS: BASOPHIL # 0.1 10^3/ul (0.0-0.1); BASOPHILS % 0.6 % (0.0-2.0); EOSINOPHILS # 0.1 10^3/ul (0.0-0.5); EOSINOPHILS % 1.1 % (0.0-7.0); HEMATOCRIT 38.5 % (37.0-47.0); HEMOGLOBIN 12.1 g/dl (12.0-16.0); LYMPHOCYTES # 1.7 10^3/ul (0.8-2.9); LYMPHOCYTES % 18.1 % (15.0-51.0); MEAN CORPUSCULAR HEMOGLOBIN 26.2 pg (29.0-33.0); MEAN CORPUSCULAR HGB CONC 31.4 g/dl (32.0-37.0); MEAN CORPUSCULAR VOLUME 83.5 fl (82.0-101.0); MEAN PLATELET VOLUME 9.9 fl (7.4-10.4); MONOCYTE # 0.8 10^3/ul (0.3-0.9); MONOCYTES % 7.9 % (0.0-11.0); NEUTROPHIL # 6.8 10^3/ul (1.6-7.5); PLATELET COUNT 323 10^3/UL (140-415); RED BLOOD COUNT 4.61 10^6/ul (4.20-5.40); RED CELL DISTRIBUTION WIDTH 16.5 % (11.5-14.5)
[2018-02-10 15:00] LABS: WHITE BLOOD COUNT 9.5 10^3/ul (4.8-10.8)
[2018-02-10 15:14] LABS: ADD UMIC YES; UR ASCORBIC ACID NEGATIVE (NEGATIVE); UR BACTERIA FEW /HPF (NONE SEEN); UR BILIRUBIN (Dip) NEGATIVE (NEGATIVE); UR BLOOD (Dip) NEGATIVE (NEGATIVE); UR CLARITY CLOUDY (CLEAR); UR COLOR YELLOW (YELLOW); UR GLUCOSE (Dip) NEGATIVE (NEGATIVE); UR KETONES (Dip) NEGATIVE (NEGATIVE); UR LEUKOCYTE ESTERASE (Dip) 3+ Leu/ul (NEGATIVE); UR MUCUS MODERATE /HPF (NONE SEEN); UR NITRITE (Dip) NEGATIVE (NEGATIVE); UR RBC 6 /HPF (0-5); UR SPECIFIC GRAVITY (Dip) 1.027 (1.003-1.030); UR SQUAMOUS EPITHELIAL CELL MANY /HPF (FEW); UR TOTAL PROTEIN (Dip) NEGATIVE (NEGATIVE); UR UROBILINOGEN (Dip) NEGATIVE (NEGATIVE); UR WBC 15 /HPF (0-5)
[2018-02-10 15:27] LABS: ANION GAP 11 (5-13)
[2018-02-10 15:30] LABS: ACETAMINOPHEN < 10.0 ug/ml (10.0-30.0); ALANINE AMINOTRANSFERASE 26 IU/L (13-69); ALBUMIN 3.6 g/dl (3.3-4.9); ALBUMIN/GLOBULIN RATIO 1.12; ALKALINE PHOSPHATASE 72 IU/L (42-121); ASPARTATE AMINO TRANSFERASE 22 IU/L (15-46); BILIRUBIN,INDIRECT 0.2 mg/dl (0-1.1); BILIRUBIN,TOTAL 0.2 mg/dl (0.2-1.3); BLOOD UREA NITROGEN 25 mg/dl (7-20); CALCIUM 8.7 mg/dl (8.4-10.2); CARBON DIOXIDE 24 mmol/L (21-31); CHLORIDE 104 mmol/L (97-110); CREATININE 0.61 mg/dl (0.44-1.00); ETHANOL < 10.0 mg/dl; GLUCOSE 129 mg/dl (70-220); POTASSIUM 3.7 mmol/L (3.5-5.1); SALICYLATE < 1.0 mg/dl (5.0-30.0); SODIUM 139 mmol/L (135-144); TOTAL PROTEIN 6.8 g/dl (6.1-8.1)
[2018-02-10 15:40] LABS: AMPHETAMINE/METHAMPHETAMINE Negative (NEGATIVE); BARBITURATES Negative (NEGATIVE); BENZODIAZEPINES Negative (NEGATIVE); CANNABINOIDS Negative (NEGATIVE); COCAINE Negative (NEGATIVE); OPIATES Negative (NEGATIVE)
== END 2018-02-10 16:55 | disposition home or self-care (01) ==
LOC: E/R 13:26
DX: R45.851 Suicidal ideations (principal); N30.90 Cystitis, unspecified without hematuria; F20.9 Schizophrenia, unspecified
CPT/HCPCS: 36415; 80053; 80307; 81001; 84703; 85025; 99283

== ENCOUNTER 2018-03-02 18:18 | Emergency (ER) | payer OTHER ==
[2018-03-02 19:42] LABS: HEMATOCRIT 37.3 % (37.0-47.0); HEMOGLOBIN 11.5 g/dl (12.0-16.0); MEAN CORPUSCULAR HEMOGLOBIN 26.3 pg (29.0-33.0); MEAN CORPUSCULAR HGB CONC 30.8 g/dl (32.0-37.0); MEAN CORPUSCULAR VOLUME 85.4 fl (82.0-101.0); MEAN PLATELET VOLUME 10.1 fl (7.4-10.4); PLATELET COUNT 301 10^3/UL (140-415); RED BLOOD COUNT 4.37 10^6/ul (4.20-5.40); RED CELL DISTRIBUTION WIDTH 16.5 % (11.5-14.5)
[2018-03-02 19:42] LABS: WHITE BLOOD COUNT 9.7 10^3/ul (4.8-10.8)
[2018-03-02 19:46] LABS: ADD MAN DIFF? YES; POSITIVE DIFF @See below
[2018-03-02 19:59] LABS: ALANINE AMINOTRANSFERASE 46 IU/L (13-69); ALBUMIN 3.8 g/dl (3.3-4.9); ALBUMIN/GLOBULIN RATIO 1.15; ALKALINE PHOSPHATASE 90 IU/L (42-121); ANION GAP 8 (5-13); ASPARTATE AMINO TRANSFERASE 27 IU/L (15-46); BILIRUBIN,INDIRECT 0.1 mg/dl (0-1.1); BILIRUBIN,TOTAL 0.1 mg/dl (0.2-1.3); BLOOD UREA NITROGEN 14 mg/dl (7-20); CALCIUM 8.8 mg/dl (8.4-10.2); CARBON DIOXIDE 24 mmol/L (21-31); CHLORIDE 103 mmol/L (97-110); CREATININE 0.58 mg/dl (0.44-1.00); Estimated GFR > 60 mL/min (>60); GLUCOSE 90 mg/dl (70-220); SODIUM 135 mmol/L (135-144); TOTAL PROTEIN 7.1 g/dl (6.1-8.1)
[2018-03-02 20:14] LABS: ACETAMINOPHEN < 10.0 ug/ml (10.0-30.0); ETHANOL < 10.0 mg/dl; SALICYLATE < 1.0 mg/dl (5.0-30.0)
[2018-03-02 20:15] LABS: BAND NEUTROPHILS % (M) 31 % (0-4); BASOPHIL #M 0.1 10^3/ul (0.0-0.0); BASOPHILS % (M) 2 % (0-2); GIANT THROMBO% (M) 1 % (0-0); LYMPHOCYTES #M 0.8 10^3/ul (0.8-2.9); LYMPHOCYTES % (M) 9 % (15-51); MONOCYTE #M 0.4 10^3/ul (0.3-0.9); MONOCYTES % (M) 5 % (0-11); PLATELET ESTIMATE NORMAL; SEG NEUT #M 5.4 10^3/ul (1.6-7.5); SEGMENTED NEUTROPHILS (M) % 53 % (39-77); SMUDGE%M 2 % (0-0)
[2018-03-02 20:20] LABS: ADD UMIC YES; UR ASCORBIC ACID 40 mg/dL (NEGATIVE); UR BACTERIA FEW /HPF (NONE SEEN); UR BILIRUBIN (Dip) NEGATIVE (NEGATIVE); UR BLOOD (Dip) 3+ mg/dL (NEGATIVE); UR CALCIUM OXALATE CRYSTAL MANY /HPF (NONE SEEN); UR CLARITY CLOUDY (CLEAR); UR COLOR YELLOW (YELLOW); UR GLUCOSE (Dip) NEGATIVE (NEGATIVE); UR KETONES (Dip) NEGATIVE (NEGATIVE); UR LEUKOCYTE ESTERASE (Dip) 3+ Leu/ul (NEGATIVE); UR MUCUS FEW /HPF (NONE SEEN); UR NITRITE (Dip) NEGATIVE (NEGATIVE); UR RBC 12 /HPF (0-5); UR SPECIFIC GRAVITY (Dip) 1.028 (1.003-1.030); UR SQUAMOUS EPITHELIAL CELL MODERATE /HPF (FEW); UR TOTAL PROTEIN (Dip) NEGATIVE (NEGATIVE); UR UROBILINOGEN (Dip) NEGATIVE (NEGATIVE); UR WBC 8 /HPF (0-5)
[2018-03-02 20:35] LABS: BARBITURATES Negative (NEGATIVE); BENZODIAZEPINES Negative (NEGATIVE); CANNABINOIDS Negative (NEGATIVE); COCAINE Negative (NEGATIVE); OPIATES Negative (NEGATIVE)
[2018-03-02 20:38] LABS: AMPHETAMINE/METHAMPHETAMINE POSITIVE (NEGATIVE)
== END 2018-03-02 23:03 | disposition home or self-care (01) ==
LOC: E/R 18:18
DX: F32.9 Major depressive disorder, single episode, unspecified (principal); Z59.0 Homelessness
CPT/HCPCS: 80053; 80307; 81001; 85025; 99283

== ENCOUNTER 2018-03-03 13:55 | Emergency (ER) | payer OTHER ==
[2018-03-03 15:19] LABS: WHITE BLOOD COUNT 6.7 10^3/ul (4.8-10.8)
[2018-03-03 15:19] LABS: HEMATOCRIT 35.1 % (37.0-47.0); HEMOGLOBIN 10.9 g/dl (12.0-16.0); MEAN CORPUSCULAR HEMOGLOBIN 25.9 pg (29.0-33.0); MEAN CORPUSCULAR HGB CONC 31.1 g/dl (32.0-37.0); MEAN CORPUSCULAR VOLUME 83.4 fl (82.0-101.0); MEAN PLATELET VOLUME 10.3 fl (7.4-10.4); PLATELET COUNT 278 10^3/UL (140-415); RED BLOOD COUNT 4.21 10^6/ul (4.20-5.40); RED CELL DISTRIBUTION WIDTH 16.8 % (11.5-14.5)
[2018-03-03 15:25] LABS: ADD MAN DIFF? YES; POSITIVE DIFF @See below
[2018-03-03 16:07] LABS: ACETAMINOPHEN < 10.0 ug/ml (10.0-30.0); ADD UMIC YES; ALANINE AMINOTRANSFERASE 36 IU/L (13-69); ALBUMIN 3.6 g/dl (3.3-4.9); ALBUMIN/GLOBULIN RATIO 1.12; ALKALINE PHOSPHATASE 86 IU/L (42-121); ANION GAP 7 (5-13); ASPARTATE AMINO TRANSFERASE 25 IU/L (15-46); BILIRUBIN,INDIRECT 0.2 mg/dl (0-1.1); BILIRUBIN,TOTAL 0.2 mg/dl (0.2-1.3); BLOOD UREA NITROGEN 15 mg/dl (7-20); CALCIUM 8.7 mg/dl (8.4-10.2); CARBON DIOXIDE 27 mmol/L (21-31); CHLORIDE 98 mmol/L (97-110); CREATININE 0.68 mg/dl (0.44-1.00); ETHANOL < 10.0 mg/dl; Estimated GFR > 60 mL/min (>60); GLUCOSE 88 mg/dl (70-220); SALICYLATE < 1.0 mg/dl (5.0-30.0); SODIUM 132 mmol/L (135-144); TOTAL PROTEIN 6.8 g/dl (6.1-8.1); UR ASCORBIC ACID 40 mg/dL (NEGATIVE); UR BACTERIA FEW /HPF (NONE SEEN); UR BILIRUBIN (Dip) NEGATIVE (NEGATIVE); UR BLOOD (Dip) 3+ mg/dL (NEGATIVE); UR CLARITY SLIGHTLY CLOUDY (CLEAR); UR COLOR YELLOW (YELLOW); UR GLUCOSE (Dip) NEGATIVE (NEGATIVE); UR KETONES (Dip) NEGATIVE (NEGATIVE); UR LEUKOCYTE ESTERASE (Dip) 1+ Leu/ul (NEGATIVE); UR MUCUS MANY /HPF (NONE SEEN); UR NITRITE (Dip) NEGATIVE (NEGATIVE); UR RBC 10 /HPF (0-5); UR SPECIFIC GRAVITY (Dip) 1.029 (1.003-1.030); UR SQUAMOUS EPITHELIAL CELL MODERATE /HPF (FEW); UR TOTAL PROTEIN (Dip) NEGATIVE (NEGATIVE); UR UROBILINOGEN (Dip) NEGATIVE (NEGATIVE); UR WBC 8 /HPF (0-5)
[2018-03-03 16:12] LABS: BARBITURATES Negative (NEGATIVE); BENZODIAZEPINES Negative (NEGATIVE); CANNABINOIDS Negative (NEGATIVE); COCAINE Negative (NEGATIVE); OPIATES Negative (NEGATIVE)
[2018-03-03 16:14] LABS: AMPHETAMINE/METHAMPHETAMINE POSITIVE (NEGATIVE)
[2018-03-03 16:51] LABS: BAND NEUTROPHILS #M 1.5 10^3/ul (0.0-0.6); BAND NEUTROPHILS % (M) 23 % (0-4); BASOPHIL #M 0.1 10^3/ul (0.0-0.0); BASOPHILS % (M) 2 % (0-2); EOSINOPHILS % (M) 3 % (0-7); GIANT THROMBO% (M) 1 % (0-0); LYMPHOCYTES #M 1.3 10^3/ul (0.8-2.9); LYMPHOCYTES % (M) 20 % (15-51); MONOCYTE #M 0.4 10^3/ul (0.3-0.9); MONOCYTES % (M) 6 % (0-11); PLATELET ESTIMATE NORMAL; POLYCHROMASIA 1+ (0-0); REACTIVE LYMPHOCYTES #M 0.2 10^3/ul (0.0-0.0); REACTIVE LYMPHOCYTES% (M) 3 % (0-0); SEGMENTED NEUTROPHILS (M) % 43 % (39-77); SMUDGE%M 17 % (0-0)
[2018-03-03] MEDS: TRIMETHOPRIM/SULFAMETHOX (DS) TAB PO (18:01)
== END 2018-03-03 20:22 | disposition home or self-care (01) ==
LOC: E/R 13:55
DX: R45.851 Suicidal ideations (principal); N30.90 Cystitis, unspecified without hematuria; F15.10 Other stimulant abuse, uncomplicated; D64.9 Anemia, unspecified
CPT/HCPCS: 80053; 80307; 81001; 81025; 85025; 87086; 99283

== ENCOUNTER 2018-03-04 11:30 | Emergency (ER) | payer OTHER ==
[2018-03-04 12:35] LABS: HEMATOCRIT 39.9 % (37.0-47.0); HEMOGLOBIN 12.5 g/dl (12.0-16.0); MEAN CORPUSCULAR HGB CONC 31.3 g/dl (32.0-37.0); MEAN PLATELET VOLUME 10.3 fl (7.4-10.4); PLATELET COUNT 318 10^3/UL (140-415); RED BLOOD COUNT 4.81 10^6/ul (4.20-5.40); RED CELL DISTRIBUTION WIDTH 16.5 % (11.5-14.5)
[2018-03-04 12:35] LABS: WHITE BLOOD COUNT 6.9 10^3/ul (4.8-10.8)
[2018-03-04 12:39] LABS: ADD MAN DIFF? YES; POSITIVE DIFF @See below
[2018-03-04 12:47] LABS: ADD UMIC YES; UR ASCORBIC ACID 40 mg/dL (NEGATIVE); UR BACTERIA FEW /HPF (NONE SEEN); UR BILIRUBIN (Dip) NEGATIVE (NEGATIVE); UR BLOOD (Dip) 3+ mg/dL (NEGATIVE); UR CLARITY CLOUDY (CLEAR); UR COLOR AMBER (YELLOW); UR GLUCOSE (Dip) NEGATIVE (NEGATIVE); UR KETONES (Dip) NEGATIVE (NEGATIVE); UR LEUKOCYTE ESTERASE (Dip) 3+ Leu/ul (NEGATIVE); UR MUCUS MANY /HPF (NONE SEEN); UR NITRITE (Dip) NEGATIVE (NEGATIVE); UR RBC 16 /HPF (0-5); UR SPECIFIC GRAVITY (Dip) 1.026 (1.003-1.030); UR SQUAMOUS EPITHELIAL CELL MODERATE /HPF (FEW); UR TOTAL PROTEIN (Dip) 1+ mg/dl (NEGATIVE); UR UROBILINOGEN (Dip) NEGATIVE (NEGATIVE); UR WBC 20 /HPF (0-5)
[2018-03-04 13:01] LABS: BARBITURATES Negative (NEGATIVE); BENZODIAZEPINES Negative (NEGATIVE); CANNABINOIDS Negative (NEGATIVE); COCAINE Negative (NEGATIVE); OPIATES Negative (NEGATIVE)
[2018-03-04 13:01] LABS: ETHANOL < 10.0 mg/dl
[2018-03-04 13:14] LABS: AMPHETAMINE/METHAMPHETAMINE POSITIVE (NEGATIVE)
[2018-03-04 13:30] LABS: ANION GAP 9 (5-13); BLOOD UREA NITROGEN 13 mg/dl (7-20); CALCIUM 9.1 mg/dl (8.4-10.2); CARBON DIOXIDE 26 mmol/L (21-31); CHLORIDE 101 mmol/L (97-110); CREATININE 0.54 mg/dl (0.44-1.00); Estimated GFR > 60 mL/min (>60); GLUCOSE 104 mg/dl (70-220); POTASSIUM 4.1 mmol/L (3.5-5.1); SODIUM 136 mmol/L (135-144)
[2018-03-04 13:35] LABS: ANISOCYTOSIS 2+ (0-0); BAND NEUTROPHILS #M 3.6 10^3/ul (0.0-0.6); BAND NEUTROPHILS % (M) 53 % (0-4); BURR CELLS 1+ (0-0); EOSINOPHILS % (M) 1 % (0-7); GIANT THROMBO% (M) 1 % (0-0); LYMPHOCYTES #M 0.4 10^3/ul (0.8-2.9); LYMPHOCYTES % (M) 7 % (15-51); METAMYELOCYTES #M 0.1 10^3/ul (0.0-0.0); METAMYELOCYTES %M 2 % (0-0); MICROCYTOSIS 2+ (0-0); MONOCYTE #M 0.9 10^3/ul (0.3-0.9); MONOCYTES % (M) 14 % (0-11); MYELOCYTES % (M) 1 % (0-0); OVALOCYTES 1+ (0-0); PLATELET ESTIMATE NORMAL; POIKILOCYTOSIS 1+ (0-0); POLYCHROMASIA 3+ (0-0); REACTIVE LYMPHOCYTES #M 0.4 10^3/ul (0.0-0.0); REACTIVE LYMPHOCYTES% (M) 6 % (0-0); SEG NEUT #M 1.4 10^3/ul (1.6-7.5); SEGMENTED NEUTROPHILS (M) % 16 % (39-77); SMUDGE%M 1 % (0-0)
== END 2018-03-04 15:09 | disposition home or self-care (01) ==
LOC: E/R 15:09
DX: R45.851 Suicidal ideations (principal); F15.10 Other stimulant abuse, uncomplicated; F17.210 Nicotine dependence, cigarettes, uncomplicated
CPT/HCPCS: 36415; 80048; 80307; 81001; 85025; 99283

== ENCOUNTER 2018-03-08 13:52 | Emergency (ER) | payer OTHER ==
[2018-03-08 14:32] LABS: URINE BLOOD (Dip) POC Negative (NEGATIVE); URINE GLUCOSE (Dip) POC Negative (NEGATIVE); URINE KETONES (Dip) POC Negative (NEGATIVE); URINE LEUKOCYTE EST (Dip) POC 2+ (NEGATIVE); URINE NITRITE (Dip) POC Negative (NEGATIVE); URINE TOTAL PROTEIN POC Trace (NEGATIVE)
[2018-03-08 14:32] LABS: URINE PH (Dip) POC 6.5 (5.0-8.5)
[2018-03-08 14:44] LABS: ABNORMAL IP MESSAGE 1; HEMATOCRIT 37.1 % (37.0-47.0); HEMOGLOBIN 11.4 g/dl (12.0-16.0); MEAN CORPUSCULAR HEMOGLOBIN 25.3 pg (29.0-33.0); MEAN CORPUSCULAR HGB CONC 30.7 g/dl (32.0-37.0); MEAN CORPUSCULAR VOLUME 82.3 fl (82.0-101.0); MEAN PLATELET VOLUME 9.7 fl (7.4-10.4); PLATELET COUNT 344 10^3/UL (140-415); RED BLOOD COUNT 4.51 10^6/ul (4.20-5.40); RED CELL DISTRIBUTION WIDTH 16.5 % (11.5-14.5)
[2018-03-08 14:44] LABS: WHITE BLOOD COUNT 8.2 10^3/ul (4.8-10.8)
[2018-03-08 14:49] LABS: POSITIVE DIFF @See below
[2018-03-08 14:50] LABS: ADD MAN DIFF? YES
[2018-03-08 14:56] LABS: ADD UMIC YES; UR ASCORBIC ACID NEGATIVE (NEGATIVE); UR BACTERIA FEW /HPF (NONE SEEN); UR BILIRUBIN (Dip) NEGATIVE (NEGATIVE); UR BLOOD (Dip) NEGATIVE (NEGATIVE); UR CLARITY CLOUDY (CLEAR); UR COLOR YELLOW (YELLOW); UR GLUCOSE (Dip) NEGATIVE (NEGATIVE); UR KETONES (Dip) NEGATIVE (NEGATIVE); UR LEUKOCYTE ESTERASE (Dip) 3+ Leu/ul (NEGATIVE); UR MUCUS MANY /HPF (NONE SEEN); UR NITRITE (Dip) NEGATIVE (NEGATIVE); UR RBC 9 /HPF (0-5); UR SPECIFIC GRAVITY (Dip) 1.025 (1.003-1.030); UR SQUAMOUS EPITHELIAL CELL MODERATE /HPF (FEW); UR TOTAL PROTEIN (Dip) NEGATIVE (NEGATIVE); UR UROBILINOGEN (Dip) NEGATIVE (NEGATIVE); UR WBC 16 /HPF (0-5)
[2018-03-08 15:01] LABS: ALANINE AMINOTRANSFERASE 111 IU/L (13-69); ALBUMIN 3.7 g/dl (3.3-4.9); ALBUMIN/GLOBULIN RATIO 1.05; ALKALINE PHOSPHATASE 111 IU/L (42-121); ANION GAP 8 (5-13); ASPARTATE AMINO TRANSFERASE 62 IU/L (15-46); BILIRUBIN,INDIRECT 0.2 mg/dl (0-1.1); BILIRUBIN,TOTAL 0.2 mg/dl (0.2-1.3); BLOOD UREA NITROGEN 16 mg/dl (7-20); CALCIUM 8.7 mg/dl (8.4-10.2); CARBON DIOXIDE 28 mmol/L (21-31); CHLORIDE 102 mmol/L (97-110); CREATININE 0.59 mg/dl (0.44-1.00); Estimated GFR > 60 mL/min (>60); GLUCOSE 99 mg/dl (70-220); POTASSIUM 4.4 mmol/L (3.5-5.1); SODIUM 138 mmol/L (135-144); TOTAL PROTEIN 7.2 g/dl (6.1-8.1)
[2018-03-08 15:03] LABS: INR 0.91; PROTIME 12.3 Sec (11.9-14.9)
[2018-03-08 15:04] LABS: PARTIAL THROMBOPLASTIN TIME 28.2 Sec (23.0-35.0)
[2018-03-08 15:07] LABS: BARBITURATES Negative (NEGATIVE); BENZODIAZEPINES Negative (NEGATIVE); CANNABINOIDS Negative (NEGATIVE); COCAINE Negative (NEGATIVE); OPIATES Negative (NEGATIVE)
[2018-03-08 15:14] LABS: ACETAMINOPHEN < 10.0 ug/ml (10.0-30.0); ETHANOL < 10.0 mg/dl; SALICYLATE < 1.0 mg/dl (5.0-30.0)
[2018-03-08 15:23] LABS: AMPHETAMINE/METHAMPHETAMINE POSITIVE (NEGATIVE)
[2018-03-08] MEDS: CIPROFLOXACIN 500 MG TAB PO (15:25)
[2018-03-09 09:47] LABS: ANISOCYTOSIS 1+ (0-0); BAND NEUTROPHILS #M 1.3 10^3/ul (0.0-0.6); BAND NEUTROPHILS % (M) 16 % (0-4); BURR CELLS 1+ (0-0); EOSINOPHILS % (M) 1 % (0-7); LYMPHOCYTES #M 3.5 10^3/ul (0.8-2.9); LYMPHOCYTES % (M) 43 % (15-51); METAMYELOCYTES %M 1 % (0-0); MONOCYTE #M 0.4 10^3/ul (0.3-0.9); MONOCYTES % (M) 6 % (0-11); MYELOCYTES #M 0.2 10^3/ul (0.0-0.0); MYELOCYTES % (M) 3 % (0-0); PLASMA CELLS #M 0.2 10^3/ul (0.0-0.0); PLASMAC%(M) 3 % (0); PLATELET ESTIMATE NORMAL; POLYCHROMASIA 1+ (0-0); REACTIVE LYMPHOCYTES% (M) 1 % (0-0); SEG NEUT #M 2.2 10^3/ul (1.6-7.5); SEGMENTED NEUTROPHILS (M) % 26 % (39-77); SMUDGE%M 12 % (0-0)
== END 2018-03-08 21:26 ==
LOC: E/R 13:52
DX: R45.851 Suicidal ideations (principal)
CPT/HCPCS: 80053; 80307; 81001; 81003; 81025; 85025; 85610; 85730; 99285-25

== ENCOUNTER 2018-04-23 07:05 | Emergency (ER) | payer OTHER ==
[2018-04-23] MEDS: OLANZAPINE 5 MG TAB PO (07:51)
== END 2018-04-23 08:30 | disposition home or self-care (01) ==
LOC: E/R 07:05
DX: T73.0XXS Starvation, sequela (principal); Z59.0 Homelessness; Z76.0 Encounter for issue of repeat prescription; Z86.59 Personal history of other mental and behavioral disorders
CPT/HCPCS: 99283; Z7502

== ENCOUNTER 2018-04-23 20:29 | Emergency (ER) | payer OTHER ==
[2018-04-24 03:16] LABS: ADD MAN DIFF? NO
[2018-04-24 03:17] LABS: BASOPHIL # 0.1 10^3/ul (0.0-0.1); BASOPHILS % 0.6 % (0.0-2.0); EOSINOPHILS # 0.2 10^3/ul (0.0-0.5); EOSINOPHILS % 2.4 % (0.0-7.0); HEMATOCRIT 34.6 % (37.0-47.0); HEMOGLOBIN 10.7 g/dl (12.0-16.0); MEAN CORPUSCULAR HGB CONC 30.9 g/dl (32.0-37.0); MEAN CORPUSCULAR VOLUME 84.2 fl (82.0-101.0); MEAN PLATELET VOLUME 10.2 fl (7.4-10.4); MONOCYTE # 0.6 10^3/ul (0.3-0.9); MONOCYTES % 7.2 % (0.0-11.0); NEUTROPHIL # 5.8 10^3/ul (1.6-7.5); NEUTROPHILS % 66.6 % (39.0-77.0); PLATELET COUNT 328 10^3/UL (140-415); RED BLOOD COUNT 4.11 10^6/ul (4.20-5.40); RED CELL DISTRIBUTION WIDTH 16.4 % (11.5-14.5)
[2018-04-24 03:17] LABS: WHITE BLOOD COUNT 8.7 10^3/ul (4.8-10.8)
[2018-04-24 03:28] LABS: ADD UMIC YES; UR ASCORBIC ACID 40 mg/dL (NEGATIVE); UR BILIRUBIN (Dip) NEGATIVE (NEGATIVE); UR BLOOD (Dip) NEGATIVE (NEGATIVE); UR CLARITY SLIGHTLY CLOUDY (CLEAR); UR COLOR YELLOW (YELLOW); UR GLUCOSE (Dip) NEGATIVE (NEGATIVE); UR KETONES (Dip) NEGATIVE (NEGATIVE); UR LEUKOCYTE ESTERASE (Dip) 3+ Leu/ul (NEGATIVE); UR NITRITE (Dip) NEGATIVE (NEGATIVE); UR RBC 3 /HPF (0-5); UR SPECIFIC GRAVITY (Dip) 1.026 (1.003-1.030); UR SQUAMOUS EPITHELIAL CELL FEW /HPF (FEW); UR TOTAL PROTEIN (Dip) NEGATIVE (NEGATIVE); UR UROBILINOGEN (Dip) NEGATIVE (NEGATIVE); UR WBC 10 /HPF (0-5)
[2018-04-24 03:36] LABS: ALANINE AMINOTRANSFERASE 29 IU/L (13-69); ALBUMIN 3.9 g/dl (3.3-4.9); ALBUMIN/GLOBULIN RATIO 1.18; ALKALINE PHOSPHATASE 88 IU/L (42-121); ANION GAP 6 (5-13); ASPARTATE AMINO TRANSFERASE 39 IU/L (15-46); BLOOD UREA NITROGEN 33 mg/dl (7-20); CALCIUM 9.1 mg/dl (8.4-10.2); CARBON DIOXIDE 28 mmol/L (21-31); CHLORIDE 108 mmol/L (97-110); CREATININE 0.74 mg/dl (0.44-1.00); Estimated GFR > 60 mL/min (>60); GLUCOSE 95 mg/dl (70-220); POTASSIUM 3.6 mmol/L (3.5-5.1); SODIUM 142 mmol/L (135-144); TOTAL PROTEIN 7.2 g/dl (6.1-8.1)
[2018-04-24 03:39] LABS: ACETAMINOPHEN < 10.0 ug/ml (10.0-30.0); ETHANOL < 10.0 mg/dl (0-0); SALICYLATE < 1.0 mg/dl (5.0-30.0)
[2018-04-24 03:40] LABS: AMPHETAMINE/METHAMPHETAMINE POSITIVE (NEGATIVE); BARBITURATES NEGATIVE (NEGATIVE); BENZODIAZEPINES NEGATIVE (NEGATIVE); CANNABINOIDS NEGATIVE (NEGATIVE); COCAINE NEGATIVE (NEGATIVE); OPIATES NEGATIVE (NEGATIVE)
== END 2018-04-24 06:41 | disposition home or self-care (01) ==
LOC: E/R 20:29
DX: F32.9 Major depressive disorder, single episode, unspecified (principal); R40.2252 Coma scale, best verbal response, oriented, at arrival to emergency department; R40.2362 Coma scale, best motor response, obeys commands, at arrival to emergency department; R40.2142 Coma scale, eyes open, spontaneous, at arrival to emergency department; F17.210 Nicotine dependence, cigarettes, uncomplicated
CPT/HCPCS: 36415; 80053; 80307; 81001; 81025; 85025; 99285

== ENCOUNTER 2018-04-24 17:16 | Emergency (ER) | payer OTHER ==
[2018-04-24 22:24] LABS: ETHANOL < 10.0 mg/dl (0-0)
== END 2018-04-25 02:03 | disposition home or self-care (01) ==
LOC: E/R 04-25 02:03
DX: R45.851 Suicidal ideations (principal); R40.2252 Coma scale, best verbal response, oriented, at arrival to emergency department; R40.2362 Coma scale, best motor response, obeys commands, at arrival to emergency department; R40.2142 Coma scale, eyes open, spontaneous, at arrival to emergency department
CPT/HCPCS: 80307; 99283

== ENCOUNTER 2018-05-16 01:20 | Emergency (ER) | payer OTHER ==
[2018-05-16 03:05] LABS: BARBITURATES Negative (NEGATIVE); BENZODIAZEPINES Negative (NEGATIVE); CANNABINOIDS Negative (NEGATIVE); COCAINE Negative (NEGATIVE); OPIATES Negative (NEGATIVE)
[2018-05-16 03:16] LABS: AMPHETAMINE/METHAMPHETAMINE POSITIVE (NEGATIVE)
== END 2018-05-16 03:05 | disposition home or self-care (01) ==
LOC: E/R 01:20
DX: F15.10 Other stimulant abuse, uncomplicated (principal); R40.2142 Coma scale, eyes open, spontaneous, at arrival to emergency department; R40.2362 Coma scale, best motor response, obeys commands, at arrival to emergency department; R40.2252 Coma scale, best verbal response, oriented, at arrival to emergency department; F60.89 Other specific personality disorders; F17.210 Nicotine dependence, cigarettes, uncomplicated
CPT/HCPCS: 80307; 81025; 99282

== ENCOUNTER 2018-05-26 08:28 | Emergency (ER) | payer OTHER ==
[2018-05-26 09:23] LABS: ETHANOL < 10.0 mg/dl (0-0)
[2018-05-26] MEDS: LORAZEPAM 0.5 MG TAB PO (09:32)
[2018-05-26 10:31] LABS: ADD UMIC YES; UR ASCORBIC ACID 40 mg/dL (NEGATIVE); UR BACTERIA FEW /HPF (NONE SEEN); UR BILIRUBIN (Dip) NEGATIVE (NEGATIVE); UR BLOOD (Dip) NEGATIVE (NEGATIVE); UR CLARITY CLEAR (CLEAR); UR COLOR YELLOW (YELLOW); UR GLUCOSE (Dip) NEGATIVE (NEGATIVE); UR KETONES (Dip) NEGATIVE (NEGATIVE); UR LEUKOCYTE ESTERASE (Dip) 1+ Leu/ul (NEGATIVE); UR MUCUS FEW /HPF (NONE SEEN); UR NITRITE (Dip) NEGATIVE (NEGATIVE); UR RBC 2 /HPF (0-5); UR SPECIFIC GRAVITY (Dip) 1.024 (1.003-1.030); UR SQUAMOUS EPITHELIAL CELL FEW /HPF (FEW); UR TOTAL PROTEIN (Dip) NEGATIVE (NEGATIVE); UR UROBILINOGEN (Dip) NEGATIVE (NEGATIVE); UR WBC 5 /HPF (0-5)
[2018-05-26 10:44] LABS: BARBITURATES Negative (NEGATIVE); BENZODIAZEPINES Negative (NEGATIVE); CANNABINOIDS Negative (NEGATIVE); COCAINE Negative (NEGATIVE); OPIATES Negative (NEGATIVE)
[2018-05-26 10:48] LABS: ADD MAN DIFF? NO
[2018-05-26 10:50] LABS: BASOPHIL # 0.1 10^3/ul (0.0-0.1); BASOPHILS % 0.4 % (0.0-2.0); EOSINOPHILS # 0.1 10^3/ul (0.0-0.5); EOSINOPHILS % 0.4 % (0.0-7.0); HEMATOCRIT 36.4 % (37.0-47.0); LYMPHOCYTES # 1.6 10^3/ul (0.8-2.9); MEAN CORPUSCULAR HEMOGLOBIN 25.2 pg (29.0-33.0); MEAN CORPUSCULAR HGB CONC 30.2 g/dl (32.0-37.0); MEAN CORPUSCULAR VOLUME 83.5 fl (82.0-101.0); MEAN PLATELET VOLUME 10.6 fl (7.4-10.4); MONOCYTE # 0.8 10^3/ul (0.3-0.9); MONOCYTES % 5.8 % (0.0-11.0); NEUTROPHIL # 10.9 10^3/ul (1.6-7.5); PLATELET COUNT 395 10^3/UL (140-415); RED BLOOD COUNT 4.36 10^6/ul (4.20-5.40); RED CELL DISTRIBUTION WIDTH 15.9 % (11.5-14.5)
[2018-05-26 10:50] LABS: WHITE BLOOD COUNT 13.5 10^3/ul (4.8-10.8)
[2018-05-26 10:55] LABS: ALANINE AMINOTRANSFERASE 26 IU/L (13-69); ALBUMIN 4.1 g/dl (3.3-4.9); ALBUMIN/GLOBULIN RATIO 1.41; ALKALINE PHOSPHATASE 104 IU/L (42-121); ANION GAP 12 (5-13); ASPARTATE AMINO TRANSFERASE 34 IU/L (15-46); BLOOD UREA NITROGEN 20 mg/dl (7-20); CALCIUM 9.5 mg/dl (8.4-10.2); CARBON DIOXIDE 25 mmol/L (21-31); CHLORIDE 103 mmol/L (97-110); CREATININE 0.53 mg/dl (0.44-1.00); Estimated GFR > 60 mL/min (>60); GLUCOSE 145 mg/dl (70-220); POTASSIUM 3.7 mmol/L (3.5-5.1); SODIUM 140 mmol/L (135-144)
[2018-05-26 10:57] LABS: AMPHETAMINE/METHAMPHETAMINE POSITIVE (NEGATIVE)
[2018-05-26 10:58] LABS: ACETAMINOPHEN < 10.0 ug/ml (10.0-30.0); SALICYLATE < 1.0 mg/dl (5.0-30.0)
[2018-05-26] MEDS: CEPHALEXIN 500 MG CAP PO (12:31)
== END 2018-05-26 15:19 | disposition home or self-care (01) ==
LOC: E/R 08:28
DX: F20.9 Schizophrenia, unspecified (principal); F15.10 Other stimulant abuse, uncomplicated; N39.0 Urinary tract infection, site not specified; I10 Essential (primary) hypertension; F17.210 Nicotine dependence, cigarettes, uncomplicated
CPT/HCPCS: 36415; 80053; 80307; 81001; 81025; 85025; 99285

== ENCOUNTER 2018-06-25 07:08 | Emergency (ER) | payer OTHER | END 2018-06-25 08:39 | disposition home or self-care (01) | LOC: E/R 07:08 | DX: F15.10 Other stimulant abuse, uncomplicated (principal); F20.9 Schizophrenia, unspecified; Z87.891 Personal history of nicotine dependence | CPT/HCPCS: 99282; Z7502 ==

== ENCOUNTER 2018-07-23 20:36 | Emergency (ER) | payer SELFPAY, OTHER | END 2018-07-24 02:50 | disposition left against medical advice (07) | LOC: E/R 20:36 | DX: Z53.21 Procedure and treatment not carried out due to patient leaving prior to being seen by health care provider (principal) ==

== ENCOUNTER 2018-07-24 06:56 | Emergency (ER) | payer SELFPAY, OTHER | END 2018-07-24 11:43 | disposition left against medical advice (07) | LOC: E/R 06:56 | DX: Z53.21 Procedure and treatment not carried out due to patient leaving prior to being seen by health care provider (principal) ==

== ENCOUNTER 2018-08-01 08:13 | Emergency (ER) | payer OTHER | END 2018-08-01 10:00 | disposition left against medical advice (07) | LOC: E/R 08:13 | DX: R45.851 Suicidal ideations (principal); F17.210 Nicotine dependence, cigarettes, uncomplicated | CPT/HCPCS: 99282; Z7502 ==

== ENCOUNTER 2018-08-01 15:50 | Emergency (ER) | payer SELFPAY, OTHER | END 2018-08-01 17:16 | disposition left against medical advice (07) | LOC: E/R 15:50 | DX: Z53.21 Procedure and treatment not carried out due to patient leaving prior to being seen by health care provider (principal) ==

== ENCOUNTER 2018-08-05 13:04 | Emergency (ER) | payer OTHER ==
[2018-08-05 16:39] LABS: URINE PH (Dip) POC 5.5 (5.0-8.5)
[2018-08-05 16:39] LABS: URINE BLOOD (Dip) POC Negative (NEGATIVE); URINE KETONES (Dip) POC Negative (NEGATIVE); URINE LEUKOCYTE EST (Dip) POC Negative (NEGATIVE); URINE NITRITE (Dip) POC Negative (NEGATIVE); URINE TOTAL PROTEIN POC 2+ (NEGATIVE)
== END 2018-08-05 14:33 | disposition home or self-care (01) ==
LOC: E/R 13:04
DX: F32.9 Major depressive disorder, single episode, unspecified (principal); F17.210 Nicotine dependence, cigarettes, uncomplicated
CPT/HCPCS: 81003; 99282

== ENCOUNTER 2018-08-13 08:10 | Emergency (ER) | payer SELFPAY, OTHER | END 2018-08-13 09:15 | disposition left against medical advice (07) | LOC: E/R 08:10 | DX: Z53.21 Procedure and treatment not carried out due to patient leaving prior to being seen by health care provider (principal) ==

== ENCOUNTER 2018-08-13 20:45 | Emergency (ER) | payer OTHER ==
[2018-08-13] MEDS: OLANZAPINE 5 MG TAB PO (21:35)
[2018-08-13 21:37] LABS: ADD MAN DIFF? NO
[2018-08-13 21:39] LABS: BASOPHIL # 0.1 10^3/ul (0.0-0.1); EOSINOPHILS # 0.2 10^3/ul (0.0-0.5); EOSINOPHILS % 1.6 % (0.0-7.0); HEMATOCRIT 35.5 % (37.0-47.0); LYMPHOCYTES # 3.2 10^3/ul (0.8-2.9); LYMPHOCYTES % 34.4 % (15.0-51.0); MEAN CORPUSCULAR HEMOGLOBIN 24.5 pg (29.0-33.0); MEAN CORPUSCULAR VOLUME 79.1 fl (82.0-101.0); MEAN PLATELET VOLUME 9.6 fl (7.4-10.4); MONOCYTE # 0.8 10^3/ul (0.3-0.9); MONOCYTES % 8.2 % (0.0-11.0); NEUTROPHIL # 5.1 10^3/ul (1.6-7.5); NEUTROPHILS % 54.3 % (39.0-77.0); PLATELET COUNT 416 10^3/UL (140-415); RED BLOOD COUNT 4.49 10^6/ul (4.20-5.40); RED CELL DISTRIBUTION WIDTH 15.8 % (11.5-14.5)
[2018-08-13 21:39] LABS: WHITE BLOOD COUNT 9.3 10^3/ul (4.8-10.8)
[2018-08-13 22:00] LABS: ALANINE AMINOTRANSFERASE 26 IU/L (13-69); ALBUMIN 4.3 g/dl (3.3-4.9); ALBUMIN/GLOBULIN RATIO 1.19; ALKALINE PHOSPHATASE 90 IU/L (42-121); ANION GAP 10 (5-13); ASPARTATE AMINO TRANSFERASE 30 IU/L (15-46); BILIRUBIN,INDIRECT 0.1 mg/dl (0-1.1); BILIRUBIN,TOTAL 0.1 mg/dl (0.2-1.3); BLOOD UREA NITROGEN 32 mg/dl (7-20); CALCIUM 9.8 mg/dl (8.4-10.2); CARBON DIOXIDE 28 mmol/L (21-31); CHLORIDE 106 mmol/L (97-110); CREATININE 0.78 mg/dl (0.44-1.00); Estimated GFR > 60 mL/min (>60); GLUCOSE 100 mg/dl (70-220); POTASSIUM 3.5 mmol/L (3.5-5.1); SODIUM 144 mmol/L (135-144); TOTAL PROTEIN 7.9 g/dl (6.1-8.1)
[2018-08-13 22:10] LABS: ACETAMINOPHEN < 10.0 ug/ml (10.0-30.0)
[2018-08-13 22:11] LABS: ETHANOL < 10.0 mg/dl (0-0); SALICYLATE < 1.0 mg/dl (5.0-30.0)
== END 2018-08-13 21:50 | disposition home or self-care (01) ==
LOC: E/R 20:45
DX: F32.9 Major depressive disorder, single episode, unspecified (principal); F20.9 Schizophrenia, unspecified
CPT/HCPCS: 80053; 80307; 85025; 99283

== ENCOUNTER 2018-08-14 12:43 | Emergency (ER) | payer OTHER | END 2018-08-14 14:03 | disposition home or self-care (01) | LOC: E/R 12:43 | DX: T73.0XXA Starvation, initial encounter (principal); Z76.5 Malingerer [conscious simulation]; Z87.891 Personal history of nicotine dependence | CPT/HCPCS: 99282; Z7502 ==

== ENCOUNTER 2018-08-19 02:22 | Emergency (ER) | payer OTHER ==
[2018-08-19 02:46] LABS: URINE BLOOD (Dip) POC Negative (NEGATIVE); URINE GLUCOSE (Dip) POC Negative (NEGATIVE); URINE KETONES (Dip) POC Negative (NEGATIVE); URINE LEUKOCYTE EST (Dip) POC 3+ (NEGATIVE); URINE NITRITE (Dip) POC Negative (NEGATIVE); URINE TOTAL PROTEIN POC Negative (NEGATIVE)
== END 2018-08-19 05:15 | disposition home or self-care (01) ==
LOC: E/R 05:15
DX: T73.0XXA Starvation, initial encounter (principal); R40.2142 Coma scale, eyes open, spontaneous, at arrival to emergency department; R40.2362 Coma scale, best motor response, obeys commands, at arrival to emergency department; R40.2252 Coma scale, best verbal response, oriented, at arrival to emergency department; Z59.0 Homelessness; Z87.891 Personal history of nicotine dependence
CPT/HCPCS: 81003; 81025; 99282

== ENCOUNTER 2018-08-19 12:25 | Emergency (ER) | payer OTHER | END 2018-08-19 13:15 | disposition left against medical advice (07) | LOC: E/R 13:15 | DX: F99 Mental disorder, not otherwise specified (principal) | CPT/HCPCS: 99282; Z7502 ==

== ENCOUNTER 2018-08-21 18:42 | Emergency (ER) | payer SELFPAY, OTHER | END 2018-08-21 19:10 | disposition left against medical advice (07) | LOC: E/R 18:42 | DX: Z53.21 Procedure and treatment not carried out due to patient leaving prior to being seen by health care provider (principal) ==

== ENCOUNTER 2018-08-22 06:37 | Emergency (ER) | payer OTHER | END 2018-08-22 10:34 | disposition home or self-care (01) | LOC: E/R 06:37 | DX: F20.9 Schizophrenia, unspecified (principal); Z59.0 Homelessness | CPT/HCPCS: 99282; Z7502 ==

== ENCOUNTER 2018-08-24 05:05 | Emergency (ER) | payer SELFPAY, OTHER | END 2018-08-24 05:14 | disposition left against medical advice (07) | LOC: E/R 05:05 | DX: Z53.21 Procedure and treatment not carried out due to patient leaving prior to being seen by health care provider (principal) ==

== ENCOUNTER 2018-08-25 13:17 | Emergency (ER) | payer SELFPAY, OTHER | END 2018-08-25 17:26 | disposition left against medical advice (07) | LOC: E/R 17:26 | DX: Z53.21 Procedure and treatment not carried out due to patient leaving prior to being seen by health care provider (principal) ==

== ENCOUNTER 2018-09-09 04:08 | Emergency (ER) | payer SELFPAY | END 2018-09-09 07:05 | disposition left against medical advice (07) | LOC: E/R 07:05 | DX: Z53.21 Procedure and treatment not carried out due to patient leaving prior to being seen by health care provider (principal) ==

== ENCOUNTER 2018-09-20 22:00 | Emergency (ER) | payer OTHER | END 2018-09-21 02:53 | disposition home or self-care (01) | LOC: E/R 22:00 | DX: R45.851 Suicidal ideations (principal); Z59.0 Homelessness | CPT/HCPCS: 99282; Z7502 ==

== ENCOUNTER 2018-09-21 07:20 | Emergency (ER) | payer OTHER | END 2018-09-21 07:39 | disposition home or self-care (01) | LOC: E/R 07:20 | DX: F32.9 Major depressive disorder, single episode, unspecified (principal); Z59.0 Homelessness | CPT/HCPCS: 99282; Z7502 ==

== ENCOUNTER 2018-12-20 15:35 | Emergency (ER) | payer OTHER | END 2018-12-20 18:06 | disposition home or self-care (01) | LOC: E/R 15:35 | DX: Z59.0 Homelessness (principal) | CPT/HCPCS: 81025; 99282 ==

== ENCOUNTER 2018-12-20 20:06 | Emergency (ER) | payer OTHER ==
[2018-12-20 22:40] LABS: ADD MAN DIFF? NO
[2018-12-20 22:41] LABS: BASOPHIL # 0.1 10^3/ul (0.0-0.1); BASOPHILS % 0.7 % (0.0-2.0); EOSINOPHILS # 0.4 10^3/ul (0.0-0.5); HEMATOCRIT 31.6 % (37.0-47.0); HEMOGLOBIN 9.2 g/dl (12.0-16.0); LYMPHOCYTES # 2.9 10^3/ul (0.8-2.9); LYMPHOCYTES % 32.4 % (15.0-51.0); MEAN CORPUSCULAR HEMOGLOBIN 22.9 pg (29.0-33.0); MEAN CORPUSCULAR HGB CONC 29.1 g/dl (32.0-37.0); MEAN CORPUSCULAR VOLUME 78.8 fl (82.0-101.0); MEAN PLATELET VOLUME 10.3 fl (7.4-10.4); MONOCYTE # 0.7 10^3/ul (0.3-0.9); MONOCYTES % 7.8 % (0.0-11.0); NEUTROPHIL # 4.8 10^3/ul (1.6-7.5); NEUTROPHILS % 53.8 % (39.0-77.0); PLATELET COUNT 336 10^3/UL (140-415); RED BLOOD COUNT 4.01 10^6/ul (4.20-5.40); RED CELL DISTRIBUTION WIDTH 19.9 % (11.5-14.5)
[2018-12-20 22:41] LABS: WHITE BLOOD COUNT 8.9 10^3/ul (4.8-10.8)
[2018-12-20 23:01] LABS: BARBITURATES Negative (NEGATIVE); BENZODIAZEPINES Negative (NEGATIVE); CANNABINOIDS Negative (NEGATIVE); COCAINE Negative (NEGATIVE); OPIATES Negative (NEGATIVE)
[2018-12-20 23:04] LABS: ALANINE AMINOTRANSFERASE 32 IU/L (13-69); ALBUMIN 3.9 g/dl (3.3-4.9); ALKALINE PHOSPHATASE 93 IU/L (42-121); ANION GAP 6 (5-13); ASPARTATE AMINO TRANSFERASE 30 IU/L (15-46); BILIRUBIN,INDIRECT 0.1 mg/dl (0-1.1); BILIRUBIN,TOTAL 0.1 mg/dl (0.2-1.3); BLOOD UREA NITROGEN 20 mg/dl (7-20); CALCIUM 8.9 mg/dl (8.4-10.2); CARBON DIOXIDE 28 mmol/L (21-31); CHLORIDE 104 mmol/L (97-110); CREATININE 0.68 mg/dl (0.44-1.00); Estimated GFR > 60 mL/min (>60); GLUCOSE 85 mg/dl (70-220); POTASSIUM 3.6 mmol/L (3.5-5.1); SODIUM 138 mmol/L (135-144); TOTAL PROTEIN 6.9 g/dl (6.1-8.1)
[2018-12-20 23:05] LABS: ACETAMINOPHEN < 10.0 ug/ml (10.0-30.0); ETHANOL < 10.0 mg/dl (0-0); SALICYLATE < 1.0 mg/dl (5.0-30.0)
[2018-12-20 23:11] LABS: AMPHETAMINE/METHAMPHETAMINE POSITIVE (NEGATIVE)
== END 2018-12-21 10:32 | disposition home or self-care (01) ==
LOC: E/R 12-21 10:32
DX: R45.851 Suicidal ideations (principal); R40.2142 Coma scale, eyes open, spontaneous, at arrival to emergency department; R40.2252 Coma scale, best verbal response, oriented, at arrival to emergency department; R40.2362 Coma scale, best motor response, obeys commands, at arrival to emergency department
CPT/HCPCS: 80053; 80307; 85025; 99283

== ENCOUNTER 2018-12-22 08:21 | Emergency (ER) | payer OTHER | END 2018-12-22 08:54 | disposition home or self-care (01) | LOC: E/R 08:21 | DX: R45.851 Suicidal ideations (principal) | CPT/HCPCS: 99282; Z7502 ==